=== PATIENT | female | born 1965 | race Caucasian/White ===

== ENCOUNTER → 2023-08-28 | Outpatient (CLI) | payer OTHER | END | disposition home or self-care (01) | LOC: LAB SHORT 14:44 → LAB 14:44 | DX: N39.3 Stress incontinence (female) (male) (principal) | CPT/HCPCS: 87086 ==

== ENCOUNTER → 2023-12-09 | Outpatient (CLI) | payer OTHER | END | disposition home or self-care (01) | LOC: LAB 14:33 → LAB SHORT 14:33 | DX: R30.0 Dysuria (principal) ==

== ENCOUNTER → 2023-12-11 | Outpatient (CLI) | payer OTHER ==
[2023-12-11 17:11] LABS: Adenovirus F 40/41 Not Detected (NOT DETECT); Astrovirus Not Detected (NOT DETECT); Campylobacter Sp Not Detected (NOT DETECT); Cryptosporidium Not Detected (NOT DETECT); Cyclospora Cayetanensis Not Detected (NOT DETECT); E. Coli O157 Not Detected (NOT DETECT); Entamoeba Histolytica Not Detected (NOT DETECT); Enteroaggregative E. coli-EAEC Not Detected (NOT DETECT); Enteropathogenic E. coli-EPEC Not Detected (NOT DETECT); Enterotoxigenic E. coli-ETEC Not Detected (NOT DETECT); Giardia Lamblia Not Detected (NOT DETECT); Norovirus GI/GII Not Detected (NOT DETECT); Plesiomonas Shigelloides Not Detected (NOT DETECT); Rotavirus A Not Detected (NOT DETECT); Salmonella Sp Not Detected (NOT DETECT); Sapovirus Not Detected (NOT DETECT); Shiga Toxin-prod E. coli-STEC Not Detected (NOT DETECT); Shigella/Enteroin E. coli-EIEC Not Detected (NOT DETECT); Vibrio Cholerae Not Detected (NOT DETECT); Vibrio Sp Not Detected (NOT DETECT); Yersinia Enterocolitica Not Detected (NOT DETECT)
== END | disposition home or self-care (01) ==
LOC: LAB 09:00 → LAB SHORT 09:00
PROVIDERS: Family Medicine
DX: R19.7 Diarrhea, unspecified (principal)
CPT/HCPCS: 87507

== ENCOUNTER → 2024-02-09 | Outpatient (CLI) | payer OTHER ==
[2024-02-09 17:33] LABS: CHOL/HDL RATIO 2.3; Cholesterol 135 mg/dL (50-200); HDL Cholesterol 59 mg/dL (>39); LDL/HDL RATIO 0.7; Low Density Lipoprotein Chol 43 mg/dL (0-110); Triglycerides 167 mg/dL (30-160); Very Low Density Lipoprot Chol 33 mg/dL (6-32)
== END | disposition home or self-care (01) ==
LOC: LAB SHORT 14:00 → LAB 14:00
PROVIDERS: Family Medicine
DX: E78.1 Pure hyperglyceridemia (principal); R73.03 Prediabetes
CPT/HCPCS: 80061; 83036

== ENCOUNTER 2024-07-21 12:20 | Day surgery (SDC) | payer OTHER ==
[~2024-07-21] VITALS: Ht 172.7 cm; Wt 58.1 kg
[~2024-07-21 12:20] MED LIST: Lactated Ringer's 1,000 ML IV ONE; propofoL 40 ML IV ONE
[2024-07-21] MEDS ORDERED: FISH OIL 1,0001 EA10 (12:55)
[2024-07-21] MEDS ORDERED: NAC600 MG (12:55)
[2024-07-21] MEDS ORDERED: Budeprion Xl300 MG (12:55)
[2024-07-21] MEDS ORDERED: ACET325 (12:56)
[2024-07-21] MEDS ORDERED: FLUO10 (12:56)
[2024-07-21] MEDS ORDERED: OXYBUTYNIN CHL2.5 MG (12:56)
[2024-07-21] MEDS ORDERED: HYDHCL25 (12:59)
[2024-07-21] MEDS ORDERED: PROG100 (12:59)
[2024-07-21] MEDS ORDERED: ATOR10 (12:59)
[2024-07-21] MEDS ORDERED: VITAMIN D325 MC3 (13:00)
[2024-07-21] MEDS ORDERED: MULTIPLE VITAM1 EACH (13:00)
[2024-07-21] MEDS ORDERED: Lactated Ringer's 1,000 ML IV ONE (13:35)
[2024-07-21 15:06] VITALS: BP 101/85
== END 2024-07-21 15:02 | disposition home or self-care (01) ==
LOC: ORSCSDS 12:20
PROVIDERS: Surgery
PROC: 0DBB8ZX Excision of Ileum, Via Natural or Artificial Opening Endoscopic, Diagnostic (ICD-10-PCS; principal; 2024-07-21 13:45)
PROC: 0DBE8ZX Excision of Large Intestine, Via Natural or Artificial Opening Endoscopic, Diagnostic (ICD-10-PCS; principal; 2024-07-21 13:45)
DX: R19.4 Change in bowel habit (principal); Z87.891 Personal history of nicotine dependence; Z86.0100 Personal history of colon polyps, unspecified; K40.90 Unilateral inguinal hernia, without obstruction or gangrene, not specified as recurrent; Z79.899 Other long term (current) drug therapy
CPT/HCPCS: 88305; J2704; J7120

== ENCOUNTER 2024-11-02 09:04 | Day surgery (SDC) | payer OTHER ==
[2024-11-02] VITALS (7 sets, daily range): BP systolic 107–126; BP diastolic 66–87
[~2024-11-02] VITALS: Ht 170.2 cm; Wt 63.0 kg
[~2024-11-02 09:04] MED LIST changes: +ACET500 PO; +ATOR10 PO; +Budeprion Xl300 MG PO; +ESTROGEL TOP; +FISH OIL 1,0001 EA10; +FLUO10; +Flonase 0.05% N16 GM; +HYDHCL25 PO; -Lactated Ringer's 1,000 ML IV ONE; +MULTIPLE VITAM1 EACH PO; +NAC600 MG PO; +OXYB5 PO; +PROG100 PO; +VITAMIN D31000 UNI1 PO; -propofoL 40 ML IV ONE
[2024-11-02] MEDS ORDERED: Lactated Ringer's 1,000 ML IV SCH (09:35)
[2024-11-02] MEDS ORDERED: CeFAZolin Sodium 2,000 MG in NS 100 ML IV SCH (09:35)
[2024-11-02] MEDS ORDERED: Acetaminophen 500 MG Tab PO ONE (10:20)
[2024-11-02] MEDS ORDERED: Bupivacaine 0.25% Epi 1:200000 30 ML Vial ONE (13:57)
[2024-11-02] MEDS ORDERED: Midazolam HCl 1MG / ML 2ML Vial IV ONE (14:05)
[2024-11-02] MEDS ORDERED: FentaNYL Citrate 50 MCG/ML 2 ML Injection ONE (14:08)
[2024-11-02] MEDS ORDERED: Lidocaine HCl 2% 20 ML MDV ONE (14:08)
[2024-11-02] MEDS ORDERED: Rocuronium Bromide 10 MG/ML 5ML Injection IV ONE (14:08)
[2024-11-02] MEDS ORDERED: propofoL 20 ML IV ONE (14:08)
--- NOTE | 2024-11-02 14:13 | NUR ---
DISTANCE GLASSES & PHONE TX TO PACU.
[2024-11-02] MEDS ORDERED: Phenylephrine HCl 100 MCG/ML-NS 10MLSYR (1MG/10ML) ONE (14:24)
[2024-11-02] MEDS ORDERED: Ondansetron HCl 2 MG / ML 2ML Vial ONE (14:31)
[2024-11-02] MEDS ORDERED: Dexamethasone Sod Phos 10 MG/ML 1ML VIAL ONE (14:31)
[2024-11-02] MEDS ORDERED: Sugammadex Sodium 200 MG/2ML SDV (100 MG/ML) ONE (15:13)
[2024-11-02] MEDS ORDERED: Ketorolac Tromethamine 30mg Vial ONE (15:15)
[2024-11-02] MEDS ORDERED: OxyCODONE 5 mg/Acetamin 325 mg TABLET PO PRN (16:00)
== END 2024-11-02 23:00 | disposition home or self-care (01) ==
LOC: ORD 09:04 → ORSCMMR 09:04 → ORD 10:00
PROVIDERS: Surgery
PROC: 8E0W4CZ Robotic Assisted Procedure of Trunk Region, Percutaneous Endoscopic Approach (ICD-10-PCS; principal; 2024-11-02 14:00)
PROC: 0YU54JZ Supplement Right Inguinal Region with Synthetic Substitute, Percutaneous Endoscopic Approach (ICD-10-PCS; principal; 2024-11-02 14:00)
DX: K40.90 Unilateral inguinal hernia, without obstruction or gangrene, not specified as recurrent (principal); Z79.899 Other long term (current) drug therapy; Z87.891 Personal history of nicotine dependence
CPT/HCPCS: A9270; C1781; J0690; J1100; J1885; J2250; J2371; J2405; J2704; J3010; J7120

== ENCOUNTER → 2025-04-18 | Outpatient (CLI) | payer OTHER ==
[2025-04-19 09:33] LABS: BASOPHILS ABSOLUTE AUTO 0.05 K/mm3 (0.00-0.23); BASOPHILS PERCENT AUTO 1 % (0-2); EOSINOPHILS ABSOLUTE AUTO 0.24 K/mm3 (0.00-0.68); EOSINOPHILS PERCENT AUTO 3 % (0-6); Hematocrit 43.3 % (33.0-51.0); Hemoglobin 14.0 g/dL (11.5-16.0); IMMATURE GRAN ABSOLUTE AUTO 0.03 K/mm3 (0.00-0.10); IMMATURE GRAN PERCENT AUTO 0 % (0-1); LYMPHOCYTES ABSOLUTE AUTO 2.82 K/mm3 (0.84-5.20); LYMPHOCYTES PERCENT AUTO 29 % (21-46); MONOCYTES ABSOLUTE AUTO 0.87 K/mm3 (0.16-1.47); MONOCYTES PERCENT AUTO 9 % (4-13); Mean Corpuscular HGB Conc 32.3 g/dL (31.5-36.5); Mean Corpuscular Volume 89 fL (80-100); NEUTROPHILS ABSOLUTE AUTO 5.78 K/mm3 (1.96-9.15); NEUTROPHILS PERCENT AUTO 59 % (41-73); NRBC ABSOLUTE 0.00 K/mm3 (0.00-0.02); NRBC Auto 0.0 /100 WBC (0.0-0.2); Platelet Count 256 K/mm3 (150-400); RDW Coefficient Variation 11.9 % (11.7-14.2); RDW Standard Deviation 38.8 fL (35.1-46.3)
[2025-04-19 09:58] LABS: Alanine Aminotransfer (ALT/SGP 35.0 U/L (12-78); Albumin, Blood 4.4 g/dL (3.4-5.0); Albumin/Globulin Ratio 1.3 (0.8-1.8); Anion Gap 8.0 mmol/L (3-11); Aspartate Aminotrans (AST/SGOT 23.0 U/L (12-37); Bilirubin, Total 0.4 mg/dL (0.1-1.0); Blood Urea Nitrogen 17.0 mg/dL (8-24); CO2, Blood 28.0 mmol/L (21-32); Calcium, Blood 8.4 mg/dL (8.5-10.1); Chloride, Blood 105.0 mmol/L (98-108); Creatinine, Blood 0.67 mg/dL (0.40-1.00); Ferritin, Serum 29.0 ng/mL (8-252); Globulin, Blood 3.4 g/dL (2.2-4.0); Glucose, Blood 103.0 mg/dL (70-99); Potassium, Blood 4.4 mmol/L (3.5-5.5); Sodium, Blood 137.0 mmol/L (136-145); Thyroid Stimulating Hormone 1.76 uIU/mL (0.360-4.800); Total Iron Binding Capacity 332.0 ug/dL (250-450); Total Protein, Blood 7.8 g/dL (6.4-8.2)
== END ==
LOC: LAB 16:35 → LAB SHORT 16:35
PROVIDERS: Student in an Organized Health Care Education/Training Program
DX: E61.1 Iron deficiency (principal); R53.82 Chronic fatigue, unspecified; R73.9 Hyperglycemia, unspecified
CPT/HCPCS: 80053; 82306; 82728; 83036; 83540; 83550; 84443; 85025